=== PATIENT | male | born 1965 | race Caucasian/White ===

== ENCOUNTER 2017-04-22 15:15 | Emergency (ER) | payer OTHER ==
[~2017-04-22] VITALS: Wt 68.0 kg
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
[2017-04-22] MEDS ORDERED: IBUP-1542 PO (15:55)
[2017-04-22] MEDS ORDERED: IBUPROFEN 200 MG TAB ONE (15:58)
== END 2017-04-22 17:09 ==
LOC: E/R 15:15
DX: S00.83XA Contusion of other part of head, initial encounter (principal); V49.40XA Driver injured in collision with unspecified motor vehicles in traffic accident, initial encounter
CPT/HCPCS: 70486